=== PATIENT | female | born 1955 | race Caucasian/White ===

== ENCOUNTER 2019-11-10 11:47 | Outpatient (CLI) | payer MEDICARE, OTHER, SELFPAY ==
--- NOTE | ~2019-11-10 | MM_ITS ---
EXAMINATION: MM diagnostic keven LT w gerhard HISTORY: New focal asymmetry laterally and left breast on CC projection TECHNIQUE: ML, MLO and cc 3-D tomosynthesis images of the left breast were performed and synthetic 2- D images were generated. CAD analysis was submitted and interpreted. COMPARISON: 04/06/2019 bilateral digital screening mammogram 04/13/2019 diagnostic left digital mammogram and limited left breast ultrasound BREAST PARENCHYMAL COMPOSITION: There are scattered areas of fibroglandular density. FINDINGS: Benign calcifications are noted, including primarily some benign calcifications of fat necr osis in the anterior mid upper left breast. No reproducible suspicious mass or architectural distortion. IMPRESSION: 1. No mammographic evidence of malignancy 2. Routine mammographic screening is recommended. BI-RADS Category 2: Benign finding(s). Reviewed, dictated and finalized at location A.
== END 2019-11-10 11:48 | disposition home or self-care (01) ==
PROVIDERS: Visit Provider Internal Medicine
DX: R92.8 Other abnormal and inconclusive findings on diagnostic imaging of breast (principal)
CPT/HCPCS: 77061; 77065; G0279

== ENCOUNTER 2020-03-09 11:15 | Outpatient (CLI) | payer MEDICARE, OTHER, SELFPAY ==
--- NOTE | ~2020-03-09 | XR_ITS ---
EXAMINATION: XR ribs LT 2V w CXR 2V INDICATION: Left rib pain TECHNIQUE: PA and lateral views of the chest and 3 views of the left ribs were obtained. COMPARISON: 05/08/2019 FINDINGS: The lungs are free of acute opacities. There is no pleural effusion or pneumothorax. The ca rdiomediastinal silhouette is normal. There is moderate thoracic spondylosis. There are changes of an terior fusion in the lower cervical spine. Suture anchors are noted in the right humeral head. No dis placed rib fracture is identified. IMPRESSION: 1. No acute cardiopulmonary abnormality or evidence of displaced rib fracture. Reviewed, dictated and finalized at location A.
== END 2020-03-09 11:16 | disposition home or self-care (01) ==
PROVIDERS: PCP Internal Medicine; Visit Provider Internal Medicine
DX: R07.81 Pleurodynia (principal)
CPT/HCPCS: 71046; 71100

== ENCOUNTER 2020-04-03 19:20 | Emergency (ER) | payer MEDICARE, OTHER, SELFPAY ==
--- NOTE | ~2020-04-03 | XR_ITS ---
EXAMINATION: XR wrist RT min 3V DATE: 04/03/2020 20:07 INDICATION: Right wrist pain and swelling. TECHNIQUE: 3 views of right wrist were obtained. COMPARISON: Right hand radiographs 03/04/2019 FINDINGS: There is a comminuted fracture of distal radius with involvement of the distal articular mason rface. The main distal fracture fragment demonstrates impaction and dorsal angulation. There is 5 deg robert dorsal tilt of the distal articular surface. Ulnar styloid is intact. There is mild osteoarthrit is of first interphalangeal joint and second metacarpophalangeal joint. IMPRESSION: 1. Comminuted fracture of distal radius. Reviewed, dictated and finalized at location A.
--- NOTE | ~2020-04-03 | XR_ITS ---
EXAMINATION: XR elbow RT min 3V DATE: 04/03/2020 20:07 INDICATION: Right elbow pain. Fall. TECHNIQUE: 4 views of right elbow were obtained. COMPARISON: None. FINDINGS: Bone alignment is normal. No fracture. Joint spaces are well maintained. There is no elbow joint effusion. IMPRESSION: 1. No fracture. Reviewed, dictated and finalized at location A. IMPRESSION: 1. No fracture.
--- NOTE | ~2020-04-03 | XR_ITS ---
EXAMINATION: XR shoulder RT min 2V DATE: 04/03/2020 20:07 INDICATION: Right shoulder pain. Fall. TECHNIQUE: 5 views of right shoulder were obtained. COMPARISON: None. FINDINGS: Bone alignment is normal. No fracture. There are suture anchors in humeral head. There are likely changes of distal clavicle resection. There is mild glenohumeral joint osteoarthritis. There a re changes of anterior fusion procedure in cervical spine. IMPRESSION: 1. Mild right glenohumeral joint osteoarthritis. Reviewed, dictated and finalized at location A.
[2020-04-03 19:25] VITALS: BP 151/63; PULSE 93; RESP 18; TEMP 36.9; O2SAT 99
--- NOTE | 2020-04-03 19:44 | ED.UPPEXIN ---
HPI - Extremity Injury (Upper) General Chief Complaint: Extremity Injury, Upper Stated Complaint: possible broken wrist Time Seen by Provider: 04/03/20 19:27 Source: patient Mode of arrival: ambulatory Limitations: no limitations History of Present Illness HPI narrative: This is a 65-year-old female that presents the emergency department for right wrist pain after injury yesterday. Reports she was walking her dog and the dog pulled on the leash. Reports this caused her to fall forward. Reports that she has had pain and swelling of the right wrist. Also reports pain radiates into the elbow. Reports some discomfort in the right shoulder as well. Reports decreased range of motion of the right wrist due to pain. Denies hitting her head, loss of consciousness, or numbness. Related Data Home Medications Medication Instructions Recorded Confirmed cholecalciferol (vitamin D3) 04/03/20 [Vitamin D3] pantoprazole PO 04/03/20 04/03/20 topiramate 04/03/20 Allergies Allergy/AdvReac Type Severity Reaction Status Date / Time No Known Allergies Allergy Unverified 04/03/20 19:29 Review of Systems Review of Systems: Narrative: CONSTITUTIONAL: Denies fever MUSCULOSKELETAL: Reports joint pain, and myalgia. NEUROLOGIC: Denies numbness All systems reviewed & are unremarkable except as noted in HPI and below PMFSH Past Medical History Medical History (Updated 04/03/20 @ 20:45 by Fatimah Vidales PA-C) History of rheumatoid arthritis Surgical History Surgical History (Updated 04/03/20 @ 19:45 by Fatimah Vidales PA-C) History of cholecystectomy History of hysterectomy History of spinal fusion Exam Narrative: Exam Narrative: GENERAL: Well-appearing, well-nourished, and in no acute distress. HEAD: Normocephalic, atraumatic. EYES: EOMI. CHEST: Clear to auscultation. No respiratory distress. No wheezes rales or rhonchi HEART: Regular rate and rhythm. No murmur heard. Normal peripheral pulses. EXTREMITIES: Normal range of motion, except decreased ROM in the right wrist due to pain. Mild edema to the right wrist with bruising to the area. Normal radial pulses. Normal sensation SKIN: Warm, dry, no rash. NEURO: No focal deficits. Alert and oriented x3. PSYCH: Normal mood and affect Course Consultations Consultation #1: Spoke with Dr. Limon about patient and work-up will follow-up in clinic Date: 04/03/20 Time: 20:00 Vital Signs Vital signs: Vital Signs Temperature 98.5 F 04/03/20 19:25 Pulse Rate 93 04/03/20 19:25 Respiratory Rate 18 04/03/20 19:25 Blood Pressure 151/63 H 04/03/20 19:25 Pulse Oximetry 99 04/03/20 19:25 Temperature 98.5 F 04/03/20 19:25 Pulse Rate 93 04/03/20 19:25 Respiratory Rate 18 04/03/20 19:25 Blood Pressure 151/63 H 04/03/20 19:25 Pulse Oximetry 99 04/03/20 19:25 Procedures Orthopedic Splinting/Casting Injury #1: Splinting/Casting Date: 04/03/20 Splinting/Casting Time: 20:25 Side: right Upper Extremity Injury Location: wrist Upper Extremity Immobilizer: volar splint Splint: customized in ED OCL: volar Pre-Procedure Neuro Vascular Exam: normal Post-Procedure Neuro Vascular Exam: normal MDM - Extremity Injury (Upper) MDM Narrative Medical decision making narrative: Patient presents the emergency department for right arm injury yesterday. Patient is neurovascularly intact. Right shoulder and elbow x-rays are without acute findings. Right wrist x-ray shows a comminuted fracture of the distal radius. Patient was placed in a splint. She is to follow-up with orthopedics. She was given warnings to return to the ER Imaging Data Radiologist's impression: ITS Impressions Shoulder X-Ray 04/03/20 20:11 IMPRESSION: 1. Mild right glenohumeral joint osteoarthritis. Wrist X-Ray 04/03/20 20:13 IMPRESSION: 1. Comminuted fracture of distal radius. Elbow X-Ray 04/03/20 20:15
[2020-04-03] MEDS: oxyCODONE/ACETAMINOPHEN 5-325 MG TABLET 1 TABLET PO (20:04)
--- NOTE | 2020-04-12 21:19 | PC.NURSE ---
LATE ENTRY This note is being entered to document information to the patient's record. The following information was omitted on 04/05/20 spint applied to the right arm
== END 2020-04-03 20:57 | disposition home or self-care (01) ==
PROVIDERS: Emergency Provider Emergency Medicine; PCP Internal Medicine
DX: S52.501A Unspecified fracture of the lower end of right radius, initial encounter for closed fracture (principal); W19.XXXA Unspecified fall, initial encounter; Y93.K1 Activity, walking an animal; M06.9 Rheumatoid arthritis, unspecified
CPT/HCPCS: 29125; 73030; 73080; 73110; 99284; A4565; A9270